=== PATIENT | female | born 1945 | race Caucasian/White ===

== ENCOUNTER 2017-08-13 11:26 | Outpatient (CLI) | payer MEDICARE, BC ==
[2017-08-13] MEDS ORDERED: Iopamidol 370 76% 100 ML VIAL ONE (13:35)
--- NOTE | 2017-08-13 14:16 | CT ---
CONTRAST ENHANCED CTA CHEST: DATE: 08/13/17. COMPARISON: Comparison is made to a previous exam from 04/01/15. FINDINGS: Contrast-enhanced CTA of the chest is performed and 2D and 3D reconstructed images performed. Images demonstrate a granuloma in the posterior aspect of the right lower lobe. Areas of lung parenc hymal scarring is seen in the right lower lobe likely due to progression of an area of lung infarctio n from old pulmonary embolus. This area correlates with the large pulmonary embolus noted on the pat diane's CTA chest from 04/01/15. The right lower lobe pulmonary embolus has for the most part resolved. There appears to be some slig ht asymmetric decreased blood flow in the right lower lobe; however, this may correlate with the area of decreased ventilation in the right lower lobe. I do not see definite evidence of residual right lower lobe pulmonary emboli. Previously visualized left lower lobe and right upper lobe pulmonary em boli have also resolved. There is subtle filling defect remaining in the left upper lobe pulmonary a rtery. This may represent residual fibrotic changes versus a new left upper lobe small pulmonary emb olus. Extensive cholelithiasis remains. IMPRESSION: Significant reduction in the previously noted extensive pulmonary emboli. There may be an area of sc arring in the right lower lobe. There may be some residual embolus or fibrosis or recurrent small ar eas of embolus in the left upper lobe. POS: [facility]
== END 2017-08-13 11:27 | disposition home or self-care (01) ==
LOC: CT 11:26
PROVIDERS: ATTEND Family Medicine
DX: I26.99 Other pulmonary embolism without acute cor pulmonale (principal); R06.02 Shortness of breath; R06.09 Other forms of dyspnea; Z86.711 Personal history of pulmonary embolism
CPT/HCPCS: 71275; 82565

== ENCOUNTER 2017-09-10 15:31 | Outpatient (CLI) | payer MEDICARE, BC | END 2017-09-10 15:32 | disposition home or self-care (01) | LOC: BICMAMMO 15:31 | PROVIDERS: ATTEND Family Medicine | DX: Z12.31 Encounter for screening mammogram for malignant neoplasm of breast (principal); Z80.3 Family history of malignant neoplasm of breast | CPT/HCPCS: 77063; 77067 ==

== ENCOUNTER 2018-02-04 09:45 | Emergency (ER) | payer MEDICARE, BC ==
[2018-02-04 10:33] LABS: #Lymphocytes 0.4 thou/uL (1.20-3.40); #Monocytes 0.3 thou/uL (0.11-0.59); #Neutrophils 4.6 thou/uL (1.40-6.50); %Eosinophils 0.6 % (0.0-10.0); %Lymphocytes 7.3 % (21.0-51.0); %Monocytes 5.4 % (0.0-10.0); %Neutrophils 86.7 % (42.0-75.0); Hemoglobin 15.9 g/dL (12.0-16.0); Mean Corpuscular HGB CONC 32.3 g/dL (32.0-36.0); Mean Corpuscular Hemoglobin 28.7 pg (27.0-31.0); Mean Corpuscular Volume 88.9 fL (78.0-98.0); Mean Platelet Volume 7.3 fL (7.4-10.4); Platelet Count 182 thou/uL (130-400); RBC Distribution Width 11.5 % (11.5-14.5); Red Blood Cell (RBC) Count 5.55 mill/uL (4.20-5.40); White Blood Cell (WBC) Count 5.4 thou/uL (4.8-10.8)
[2018-02-04 10:54] LABS: ALT (SGPT) 25 U/L (8-55); AST (SGOT) 25 U/L (5-34); Albumin 3.8 g/dL (3.4-4.8); Alkaline Phosphatase 82 U/L (40-150); Anion Gap 10 mmol/L (10-20); BUN (Urea Nitrogen) 19 mg/dL (9.8-20.1); Bilirubin, Total 1.2 mg/dL (0.2-1.2); Calc. Creatinine Clearance 0 mL/min (70-130); Calcium 9.5 mg/dL (7.8-10.44); Carbon Dioxide 28 mmol/L (23-31); Chloride 105 mmol/L (98-107); Estimated GFR-MDRD 68; Globulin 2.6 g/dL (2.4-3.5); Glucose 158 mg/dL (83-110); Potassium 3.7 mmol/L (3.5-5.1); Protein, Total 6.4 g/dL (6.0-8.3); Sodium 139 mmol/L (136-145)
== END 2018-02-04 11:46 | disposition home or self-care (01) ==
LOC: ERS 09:45
DX: R11.2 Nausea with vomiting, unspecified (principal); R19.7 Diarrhea, unspecified; R55 Syncope and collapse; E03.9 Hypothyroidism, unspecified; G47.30 Sleep apnea, unspecified; E78.5 Hyperlipidemia, unspecified; I10 Essential (primary) hypertension; Z86.711 Personal history of pulmonary embolism; Z79.899 Other long term (current) drug therapy; Z79.82 Long term (current) use of aspirin
CPT/HCPCS: 36415; 80053; 83880; 85025; 93005

== ENCOUNTER 2018-04-07 08:22 | Emergency (ER) | payer MEDICARE, BC ==
[2018-04-07 09:12] LABS: #Basophils 0.1 thou/uL (0.0-0.2); #Eosinphils 0.1 thou/uL (0.0-0.7); #Lymphocytes 1.5 thou/uL (1.20-3.40); #Monocytes 0.5 thou/uL (0.11-0.59); #Neutrophils 3.7 thou/uL (1.40-6.50); %Basophils 0.9 % (0.0-1.0); %Eosinophils 1.1 % (0.0-10.0); %Lymphocytes 25.9 % (21.0-51.0); %Neutrophils 64.1 % (42.0-75.0); Hemoglobin 16.2 g/dL (12.0-16.0); Mean Corpuscular HGB CONC 32.3 g/dL (32.0-36.0); Mean Corpuscular Hemoglobin 28.7 pg (27.0-31.0); Mean Corpuscular Volume 88.9 fL (78.0-98.0); Mean Platelet Volume 7.5 fL (7.4-10.4); Platelet Count 186 thou/uL (130-400); RBC Distribution Width 11.9 % (11.5-14.5); Red Blood Cell (RBC) Count 5.64 mill/uL (4.20-5.40); White Blood Cell (WBC) Count 5.8 thou/uL (4.8-10.8)
--- NOTE | 2018-04-07 09:25 | RAD ---
PORTABLE CHEST: Indication: Dyspnea, shortness of breath. Comparison: 08-11-17 FINDINGS: Film is suboptimal due to over exposure. No definite infiltrate identified. Elevated right hemidiaphr agm is stable. The heart and mediastinum appear unchanged from prior exam. IMPRESSION: Suboptimal exam due to over exposure. No acute process apparent. POS: [facility]
[2018-04-07 09:31] LABS: ALT (SGPT) 18 U/L (8-55); AST (SGOT) 16 U/L (5-34); Albumin 4.4 g/dL (3.4-4.8); Alkaline Phosphatase 95 U/L (40-150); Anion Gap 16 mmol/L (10-20); BUN (Urea Nitrogen) 13 mg/dL (9.8-20.1); Bilirubin, Total 1.2 mg/dL (0.2-1.2); Calc. Creatinine Clearance 0 mL/min (70-130); Calcium 10.8 mg/dL (7.8-10.44); Carbon Dioxide 24 mmol/L (23-31); Chloride 105 mmol/L (98-107); Estimated GFR-MDRD 67; Globulin 2.8 g/dL (2.4-3.5); Glucose 113 mg/dL (83-110); Potassium 3.6 mmol/L (3.5-5.1); Protein, Total 7.2 g/dL (6.0-8.3); Sodium 141 mmol/L (136-145)
== END 2018-04-07 10:58 | disposition home or self-care (01) ==
LOC: ERS 08:22
DX: R09.02 Hypoxemia (principal); R71.8 Other abnormality of red blood cells; G47.30 Sleep apnea, unspecified; I10 Essential (primary) hypertension; E78.5 Hyperlipidemia, unspecified; E03.9 Hypothyroidism, unspecified; Z79.82 Long term (current) use of aspirin; Z79.899 Other long term (current) drug therapy
CPT/HCPCS: 71045; 80053; 84484; 85025; 93005

== ENCOUNTER 2018-04-08 18:27 | Inpatient (IN) | payer MEDICARE, BC ==
[~2018-04-08 18:27] MED LIST: ISOVUE-370 76%-LOCM 1 ML ONE
[2018-04-08 19:56] LABS: PTT 24.1 SEC (22.9-36.1); Prothrombin Time 13.6 SEC (12.0-14.7)
[2018-04-08 20:33] LABS: CKMB 1.9 ng/mL (0-6.6)
[2018-04-08] MEDS ORDERED: Enoxaparin Sodium 30 MG/0.3 ML SYRINGE ONE (20:33)
[2018-04-08] MEDS ORDERED: Enoxaparin Sodium 100 MG/ML SYRINGE ONE (20:33)
--- NOTE | 2018-04-08 22:03 | CT ---
CT ANGIOGRAM CHEST 04/08/18 COMPARISON: 08/13/17 HISTORY: Chest pain, elevated D-dimer, short of breath. TECHNIQUE: Axial CT imaging at 2.5 mm intervals from thoracic inlet through upper abdomen with IV contrast. Carlos nal and oblique sagittal 3D reformatted imaging obtained. FINDINGS: Partially visualized upper abdomen demonstrates cholelithiasis. No pleural, pericardial, or mediastinal fluid is evident. No axillary, mediastinal, or hilar adenopat hy. A saddle embolism is seen at the bifurcation of the main pulmonary arterial trunk with acute pulmonar y embolism within the right and left main pulmonary arteries. There is clot extending into the lobar and segmental pulmonary arteries supplying the right upper lobe, the right middle lobe, the right low er lobe, the left upper lobe, and the left lower lobe. When compared to the prior examination, the right ventricle is enlarged and the left ventricle is burt ewhat narrowed in the transverse dimension. The interventricular septum is also slightly deviated to the left when compared to the prior examination. This could be explained by the phase of cardiac cycl e, but right heart strain is a possibility as well. There is a granuloma in the right lower lobe on image 69. The lung parenchyma demonstrates no focal a jessica of abnormal opacity. Review of the osseous structures demonstrates degenerative change of bilater al glenohumeral joints. No worrisome lytic or blastic bone lesion is seen. There is multilevel degene rative change noted within the imaged spine. There is incompletely assessed levoscoliosis of the uppe r lumbar spine. IMPRESSION: Extensive pulmonary arterial embolism. Question evidence of right heart strain. Results called to Dr. Singh at 8:25 p.m., 04/08/18. Code CR POS: [facility]
[2018-04-08 23:16] LABS: Troponin I 0.078 ng/mL (< 0.028)
[2018-04-08] MEDS ORDERED: hydrALAZINE 20 MG/ML VIAL SLOW IVP PRN (23:46)
[2018-04-08] MEDS ORDERED: Acetaminophen 325 MG TAB PO PRN (23:46)
[2018-04-08] MEDS ORDERED: Promethazine 25 MG TAB PO PRN (23:46)
[2018-04-08] MEDS ORDERED: Temazepam 15 MG CAP PO PRN (23:46)
[2018-04-08] MEDS ORDERED: Benzonatate 100 MG CAP PO PRN (23:46)
[2018-04-09] MEDS ORDERED: Ondansetron PF 4 MG/2 ML Vial IVP PRN
[2018-04-09] MEDS ORDERED: Sodium Chloride 0.9% 1,000 ML IV SCH
[2018-04-09] MEDS ORDERED: Ondansetron ODT 4 MG TAB SL PRN
[2018-04-09 00:01] VITALS: BMI 47.7
[2018-04-09] MEDS ORDERED: Simvastatin 40 MG TAB PO SCH ×2 (00:30→21:00)
[2018-04-09] MEDS: Sodium Chloride 0.9% 1,000 ML IV SCH ×3 (00:34→15:20)
[2018-04-09 01:45] LABS: #Basophils 0.1 thou/uL (0.0-0.2); #Eosinphils 0.1 thou/uL (0.0-0.7); #Lymphocytes 2.5 thou/uL (1.20-3.40); #Monocytes 0.7 thou/uL (0.11-0.59); #Neutrophils 3.8 thou/uL (1.40-6.50); %Basophils 0.9 % (0.0-1.0); %Eosinophils 1.8 % (0.0-10.0); %Lymphocytes 34.7 % (21.0-51.0); %Monocytes 9.4 % (0.0-10.0); %Neutrophils 53.1 % (42.0-75.0); Hemoglobin 13.8 g/dL (12.0-16.0); Mean Corpuscular HGB CONC 32.9 g/dL (32.0-36.0); Mean Corpuscular Hemoglobin 29.2 pg (27.0-31.0); Mean Corpuscular Volume 88.7 fL (78.0-98.0); Mean Platelet Volume 7.3 fL (7.4-10.4); Platelet Count 163 thou/uL (130-400); RBC Distribution Width 11.8 % (11.5-14.5); Red Blood Cell (RBC) Count 4.72 mill/uL (4.20-5.40); White Blood Cell (WBC) Count 7.2 thou/uL (4.8-10.8)
[2018-04-09 02:21] LABS: Troponin I 0.076 ng/mL (< 0.028)
[2018-04-09 02:22] LABS: Anion Gap 14 mmol/L (10-20); BUN (Urea Nitrogen) 14 mg/dL (9.8-20.1); Calc. Creatinine Clearance 116 mL/min (70-130); Calcium 9.6 mg/dL (7.8-10.44); Carbon Dioxide 24 mmol/L (23-31); Chloride 106 mmol/L (98-107); Estimated GFR-MDRD 59; Glucose 108 mg/dL (83-110); Potassium 3.3 mmol/L (3.5-5.1); Sodium 141 mmol/L (136-145)
[2018-04-09 02:42] LABS: Thyroid Stimulating Hormone 0.617 uIU/mL (0.35-4.94)
--- NOTE | 2018-04-09 03:40 | HP ---
PRIMARY CARE PHYSICIAN: Orquidea Matos MD CHIEF COMPLAINT: Feeling short of breath. HISTORY OF PRESENT ILLNESS: Ms. Zheng is a pleasant 72-year-old female who has a history of hypertension and hyperlipidemia. She was in her usual state of health until about 2 to 3 months ago that she noticed that she was short of breath primarily when she would get up and walk around but only for just short distances. She says that in the last 2 to 3 days, she has been extremely short of breath and she had gone to the emergency room yesterday and they saw her and treated her and told her to follow up with her primary care physician. She did the following day and Dr. Matos did some lab work and found that her D-dimer was elevated and referred her back to the ER today for further evaluation. She had a CT angiogram of the chest, which was positive for a saddle embolus and she is being admitted for the treatment of this. The patient has a history of pulmonary embolism in the past. This was following a knee replacement surgery. She says she is not sure whether or not she had lab work for hypercoagulable state. She was treated with Eliquis for 6 months to year and then taken off it. The patient denies any provoking incident on this occasion that she is aware of. She does remember going on a trip in [place] for about [address], but other than that, no other provoking symptoms. She denies any chest pain. No nausea. No vomiting. No fevers. No chills, and she has usual lower extremity edema. REVIEW OF SYSTEMS: All systems were reviewed and are negative except for that mentioned in the history of present illness. PAST MEDICAL HISTORY: Significant for hypertension, previous pulmonary embolism, hyperlipidemia, obstructive sleep apnea, hypothyroidism. PAST SURGICAL HISTORY: She has had cataract surgery, colonoscopy, knee replacement, hysterectomy, hemorrhoidectomy, tonsillectomy. ALLERGIES: 1. PENICILLIN. 2. CODEINE. FAMILY HISTORY: Significant for hypertension and diabetes mellitus. Her father who had lung cancer. SOCIAL HISTORY: She is a nonsmoker and nondrinker. She is . Code status is full code, and with regard to the code status, she says that she would want an attempt of resuscitation; however, she would not want to linger on the ventilator for a long period of time. Therefore, code status is a full code. Her son is her surrogate decision maker. CURRENT MEDICATIONS: Include; 1. Simvastatin 20 mg at bedtime. 2. Metoprolol 50 mg extended release at bedtime. 3. Losartan 50/12.5 daily. 4. Potassium chloride 10 mEq. 5. Aspirin 81 mg daily. PHYSICAL EXAMINATION: GENERAL: She is alert and oriented. She appears to be in no acute distress. VITAL SIGNS: She is in no acute distress. She is well developed and well nourished. VITAL SIGNS: Blood pressure 118/84, heart rate 112, respiratory rate of 22, temperature is 98.6. HEENT: Pupils are equal, round, and reactive. Extraocular muscles are intact. Her sclerae are anicteric. Throat; there is no erythema, no exudates. NECK: No adenopathy. No bruits. LUNGS: Clear to auscultation. There is no wheezing, no rales, no rhonchi. CARDIOVASCULAR: She had a normal S1 and S2. There is no S3 or S4. No murmurs, clicks, or rubs. ABDOMEN: Obese. It is soft. It is nontender and nondistended. Positive for bowel sounds. There is no rebound or guarding. EXTREMITIES: She has some varicose veins, some nonpitting edema, but there is no erythema, no warmth. NEUROLOGIC: Her cranial nerves II through XII are grossly intact. Muscle strength is intact in her upper and lower extremities. SKIN AND INTEGUMENT: There are no significant skin lesions. No rash. LAB RESULTS: White blood cell count 5.8, hemoglobin 16.2, hematocrit is 50.2, platelet count is 186. Sodium is 141, potassium 3.6, chloride is 104, CO2 is 24, BUN of 13, creatinine 0.84, glucose is 113. A chest x-ray that by my reading is poorly penetrated. No evidence of any acute infiltrates. She had an EKG, that is sinus tachycardia, the heart rate is 108. There is low voltage and some nonspecific ST wave abnormalities. This is also by my reading. ASSESSMENT: 1. Ms. Zheng is a pleasant 72-year-old female, who presents to the emergency room with shortness of breath. She has a history of pulmonary embolism in the past and is being admitted for a recurrent pulmonary embolism, which was described as a saddle embolus on the CT angiogram. She is not hypotensive and she does not appear to be in any extremis, therefore I doubt that she would require thrombolytic therapy. She will be admitted to the [facility] versus telemetry. Started on Lovenox. She has had Eliquis in the past and feels comfortable being treated with this going forward. We will get an echocardiogram to assess her RV function and assess for RV strain. We will also get bilateral lower extremity venous Dopplers as well. Pulmonary Critical Care Medicine has already been consulted. 2. For hypertension, we will continue losartan, hydrochlorothiazide, and p.r.n. medications as needed. 3. History of obstructive sleep apnea. She can use BiPAP at night with her usual setting. 4. Hypothyroidism. This is listed in her record, however, does not appear that she is on any medications for this. We will go ahead and just check a TSH and free T4. Job ID: [id number]
--- NOTE | 2018-04-09 04:06 | CON ---
DATE OF CONSULTATION: 04/07/2018 REASON FOR CONSULTATION: Pulmonary embolism. HISTORY OF PRESENT ILLNESS: Ms. Zheng is a pleasant 72-year-old female, who presented to the hospital today with a 2-3-week history of increasing shortness of breath and no other symptoms. She has a history of a pulmonary embolism that occurred after a left knee replacement and subsequent DVT a few years ago. She was on Eliquis for 1 year, but has now been off that medication for over a year. She has no history of current or past bleeding diathesis. She is currently not taking any blood thinner medication. PAST MEDICAL HISTORY: 1. Pulmonary embolism. 2. Deep venous thromboses. 3. Hyperlipidemia. 4. Hypertension. 5. Hypothyroidism. PAST SURGICAL HISTORY: Hysterectomy, hemorrhoidectomy, cataract surgery, tonsillectomy and adenoidectomy, and knee replacement. SOCIAL HISTORY: Nonsmoker, does not consume alcohol. She is a retired elementary school art teacher. FAMILY MEDICAL HISTORY: Unremarkable. ALLERGIES: PENICILLIN, CODEINE, OPIOIDS, AND TRAMADOL. REVIEW OF SYSTEMS: A 12-point review of systems is otherwise negative. PHYSICAL EXAMINATION: VITAL SIGNS: Temperature is 98, pulse 94, respirations 22, blood pressure 151/105, and O2 saturation 100% on 3 L nasal cannula. GENERAL: She is a pleasant female who is awake and alert, and in no distress. HEENT: Pupils reactive. Sclerae anicteric. Oropharynx clear. NECK: Without adenopathy, JVD, or bruits. LUNGS: Clear without wheezing or rhonchi. CARDIAC: S1 and S2, regular without murmur. ABDOMEN: Obese, soft, nontender, and nondistended. EXTREMITIES: No clubbing, cyanosis, or edema. NEUROLOGIC: Fully intact throughout. SKIN: Shows no lesions. LABORATORY DATA: Her INR is 1.0, PTT 24.1, troponin 0.09. White blood cell count 5.8, hematocrit 50, and platelet count 186. D-dimer 4.3. Sodium 141, potassium 3.6, BUN 13, creatinine 0.8. I reviewed her CT angiogram personally. She has small emboli straddling the bifurcation of the pulmonary artery. She has embolus extending to both left and right main pulmonary artery branches. ASSESSMENT: 1. Recurrent pulmonary embolism. 2. Probable deep venous thromboses. 3. Hypertension. 4. Hypothyroidism. 5. History of hyperlipidemia. PLAN: This patient will need to be on lifelong anticoagulation. She received a dose of Lovenox in the ER this evening. She can be safely transitioned to Eliquis 10 mg b.i.d. starting tomorrow morning. We will get an ultrasound of her lower extremities to confirm DVT. If present, she will probably need to be monitored in the hospital for about 48 hours and then safe to discharge thereafter. I will be happy to follow with you. TIME SPENT: The above accomplished 70 minutes of time, of that time greater than 50% was spent with the patient and on the patient's unit in the hospital. Job ID: [id number]
[2018-04-09 05:26] LABS: Free T4 (Free Thyroxine) 1.09 ng/dL (0.70-1.48)
[2018-04-09] MEDS ORDERED: Apixaban 5 MG TAB PO SCH ×2 (07:00)
--- NOTE | 2018-04-09 09:33 | ULT ---
BILATERAL LOWER EXTREMITY VENOUS DOPPLER ULTRASOUND: HISTORY: Pulmonary embolism, elevated D-dimer, shortness of breath, and chest pain. Bilateral lower extremity pain and edema. TECHNIQUE: Iqbal scale ultrasound with color flow and spectral Doppler imaging of the deep venous systems of the lower extremities is performed bilaterally. FINDINGS: There is good flow, compression, and augmentation noted in the common femoral, femoral, deep femoral, popliteal, posterior tibial, and greater saphenous veins on either side. IMPRESSION: No evidence of deep vein thrombosis in either lower extremity. POS: [facility]
--- NOTE | 2018-04-09 10:46 | PRG ---
DATE OF SERVICE: 04/09/2018 SUBJECTIVE: She is less short of breath. Has no acute complaints. OBJECTIVE: VITAL SIGNS: Temperature 97.8, pulse 81, respirations 18, O2 saturation is 94% on 2 L, and blood pressure 111/77. HEENT: Unremarkable. NECK: No adenopathy. No JVD. LUNGS: Clear anteriorly. CARDIAC: S1, S2. Regular. ABDOMEN: Soft. EXTREMITIES: No edema. The venogram demonstrated no DVT. ASSESSMENT: Pulmonary embolism. PLAN: Continue Eliquis 10 mg twice daily for the next total of 7 days, then 5 mg twice daily indefinitely thereafter. If she is doing well today, she can probably go home tomorrow. Job ID: [id number]
--- NOTE | 2018-04-09 10:51 | PDOC.PN ---
- Subjective Encounter Start Date: 04/09/18 Encounter Start Time: 10:50 Subjective: no chest pain, sob - Objective Resuscitation Status - Order Detail: 04/08/18 22:30 Resuscitation Status Routine Resuscitation Status: FULL: Full Resuscitation MAR Reviewed: Yes Vital Signs & Weight: Vital Signs (12 hours) Temp Pulse Resp BP Pulse Ox 04/09/18 07:57 94 L 04/09/18 07:30 97.8 F 81 18 111/77 94 L 04/09/18 03:56 97.2 F L 75 16 110/62 94 L 04/08/18 23:35 97.8 F 98 22 H 142/85 H 98 Weight Weight 295 lb 6.4 oz I&O: 04/08/18 04/09/18 04/10/18 06:59 06:59 06:59 Intake Total 599 Output Total 300 Balance 299 Result Diagrams: 04/09/18 01:37 04/09/18 01:37 Phys Exam - Physical Examination Neck: no JVD Respiratory: clear to auscultation bilateral Cardiovascular: RRR, no significant murmur Gastrointestinal: soft, positive bowel sounds Musculoskeletal: no edema Dx/Plan (1) Pulmonary embolism Code(s): I26.99 - OTHER PULMONARY EMBOLISM WITHOUT ACUTE COR PULMONALE Status : Acute Qualifiers: Pulmonary embolism type: saddle Chronicity: acute Acute cor pulmonale presence: without acute cor pulmonale Qualified Code(s): I26.92 - Saddle embolus of pulmonary artery without acute cor pulmonale (2) Hypothyroidism Code(s): E03.9 - HYPOTHYROIDISM, UNSPECIFIED Status: Acute Qualifiers: Hypothyroidism type: unspecified Qualified Code(s): E03.9 - Hypothyroidism , unspecified (3) Dyslipidemia Code(s): E78.5 - HYPERLIPIDEMIA, UNSPECIFIED Status: Chronic (4) Hypertension Code(s): I10 - ESSENTIAL (PRIMARY) HYPERTENSION Status: Chronic Qualifiers: Hypertension type: essential hypertension Qualified Code(s): I10 - Essential (primary) hypertension (5) GREGORY (obstructive sleep apnea) Code(s): G47.33 - OBSTRUCTIVE SLEEP APNEA (ADULT) (PEDIATRIC) Status: Chronic - Plan eliquis 10 mg bid -: OL2 prn -: selected home meds * .
[2018-04-09] MEDS: Apixaban 5 MG TAB PO SCH (20:47)
[2018-04-10] MEDS: Sodium Chloride 0.9% 1,000 ML IV SCH (03:16)
[2018-04-10 07:34] VITALS: BP 128/75; TEMP 97.3
[2018-04-10] MEDS: Apixaban 5 MG TAB PO SCH (08:56)
--- NOTE | 2018-04-10 10:03 | DIS ---
DATE OF ADMISSION: 04/08/2018 DATE OF DISCHARGE: 04/10/2018 PRIMARY CARE PHYSICIAN: Orquidea Matos MD DISPOSITION: Discharged home. FINAL DIAGNOSES: 1. Saddle embolus of pulmonary artery without acute cor pulmonale. 2. Hypertension. 3. Hypothyroidism. 4. Dyslipidemia. 5. Demand ischemia. DISCHARGE MEDICATIONS: 1. Eliquis 10 mg p.o. b.i.d. x5 days, then 5 mg p.o. b.i.d. indefinitely. 2. Potassium chloride 10 mEq a day. 3. Thyroid 90 mg a day. 4. Metoprolol 50 mg at bedtime. 5. Losartan/hydrochlorothiazide 50/12.5, 1 tablet daily. 6. Zocor 20 mg at bedtime. ALLERGIES: CODEINE AND PENICILLIN. DIET: Heart healthy. PENDING AT THE TIME OF DISCHARGE: Nothing. ACTIVITY STATUS: The patient has been cautioned on avoiding dangerous activities such as climbing ladders, getting into any state where she is likely to fall or injure herself. HOSPITAL COURSE: The patient admitted to the hospital through [facility] from the emergency room with an acute pulmonary embolus. She had a previous pulmonary embolism. She was started on Eliquis [address] Wu consulted. CT done in the emergency room revealed saddle embolism at the bifurcation of the main pulmonary artery trunk with acute pulmonary embolism in both right and left pulmonary arteries. PERTINENT LABORATORY: Her basic metabolic profile was normal. Her troponin's were elevated to 0.09, 0.078, 0.076 suggestive of demand ischemia. CBC was unremarkable. The patient has done well during her hospital stay. Ambulating without difficulty. She is being discharged to follow up with her primary care provider Dr. Orquidea Matos in one week. There is an echocardiogram pending, it was done routinely for followup on the echocardiogram done while she was to follow up on her reports of dilated right ventricle on the CT scan, etc. A venogram was done, which showed no clot in either leg. At the time of discharge, vital signs are stable. Cardio-respiratory exam is normal and she is doing well. Job ID: [id number]
--- NOTE | 2018-04-10 10:06 | PQF ---
EDGAR HOLLEY, [facility] [id number] [facility] [id number] CLINICAL DOCUMENTATION IMPROVEMENT CLARIFICATION FORM: ICD-10 Updated PLEASE DO AN ADDENDUM TO THE PROGRESS NOTE WITH ANY DOCUMENTATION UPDATES OR ADDITIONS AND CARRY THROUGH TO DC SUMMARY. THANK YOU. DATE: 04/10/2018 ATTN: DR. POPE Please exercise your independent, professional judgment in responding to the clarification form. Clinical indicators are provided on the bottom of this form for your review Please check appropriate box(s): BMI > 40 with associated diagnosis of: (check one) [x ] Morbid (Severe) Obesity [x ] Due to excess calories [ ] with Alveolar Hypoventilation (Pickwickian syndrome) [ ] Overweight [ ] Obesity [ ] Other diagnosis [ ] Unable to determine For continuity of documentation, please document condition throughout progress notes and discharge summary. Thank You. BMI < 19 Under weight 19 - 24.9 Healthy 25.0 - 29.9 Slightly Overweight 30.0 - 34.9 Obese 35.0 - 39.9 Severely Obese 40.0 and Over Morbidly Obese CLINICAL INDICATORS - SIGNS / SYMPTOMS / LABS Height-5'6" AND Weight-295 LBS = BMI 47.7 RISK FACTORS Hypothyroid Obstructive sleep apnea Hyperlipidemia TREATMENTS: Dietary consult / weight loss counseling Calorie counts Thank you, Katya (This form is maintained as a part of the permanent medical record) 2014 [employer], [employer]. All Rights Reserved Katya Escobar RN, CDIS [email or web address] [phone] MTDD
--- NOTE | 2018-04-10 11:08 | PRG ---
DATE OF SERVICE: 04/10/2018 SUBJECTIVE: She is up in chair, feels well, wants to go home. OBJECTIVE: VITAL SIGNS: Temperature 97.3, pulse 76, respirations 18, O2 saturation 94% on room air, and blood pressure 120/75. HEENT: Unremarkable. NECK: No JVD. CHEST: Clear. CARDIAC: S1 and S2. Regular. ABDOMEN: Soft. EXTREMITIES: No edema. LABORATORY DATA: Her echocardiogram report is still pending. ASSESSMENT: Pulmonary embolism - recurrent. PLAN: Lifelong Eliquis. Discharge orders have been written by the hospitalist. The patient will follow up in the office in a few weeks. Job ID: [id number]
--- NOTE | 2018-04-12 00:05 | EKG ---
Test Reason : Blood Pressure : / mmHG Vent. Rate : 104 BPM Atrial Rate : 104 BPM P-R Int : 210 ms QRS Dur : 068 ms QT Int : 346 ms P-R-T Axes : 057 -17 041 degrees QTc Int : 454 ms Sinus tachycardia with 1st degree A-V block Low voltage QRS Inferior infarct , age undetermined Cannot rule out Anterior infarct , age undetermined Abnormal ECG Confirmed by NIKITA EPSTEIN MD ([id number]), inside sales person KIM VENTURA ([id number]) on 04/12/2018 12:04:24 AM Referred By: Confirmed By:NIKITA EPSTEIN MD
== END 2018-04-10 11:34 | disposition home or self-care (01) | DRG 176 ==
LOC: ERS 18:27 → 2NO 20:53
PROVIDERS: ADMIT Internal Medicine; ATTEND Internal Medicine
DX: I26.92 Saddle embolus of pulmonary artery without acute cor pulmonale (principal); I24.8 Other forms of acute ischemic heart disease; Z68.42 Body mass index [BMI] 45.0-49.9, adult; I10 Essential (primary) hypertension; E78.5 Hyperlipidemia, unspecified; G47.33 Obstructive sleep apnea (adult) (pediatric); E03.9 Hypothyroidism, unspecified; Z96.659 Presence of unspecified artificial knee joint; E66.01 Morbid (severe) obesity due to excess calories; Z98.49 Cataract extraction status, unspecified eye; Z86.711 Personal history of pulmonary embolism; Z90.710 Acquired absence of both cervix and uterus; Z90.89 Acquired absence of other organs; Z98.890 Other specified postprocedural states; Z88.0 Allergy status to penicillin; Z88.5 Allergy status to narcotic agent; Z79.82 Long term (current) use of aspirin; Z86.718 Personal history of other venous thrombosis and embolism
CPT/HCPCS: 36415; 71045; 71275; 80048; 80053; 82550; 82553; 83880; 84439; 84443; 84484; 85025; 85379; 85610; 85730; 93005; 93306; 93970; 96372; J1650

== ENCOUNTER 2018-09-11 09:55 | Outpatient (CLI) | payer MEDICARE, BC ==
--- NOTE | 2018-09-11 11:18 | MMO ---
Bilateral MAMMO Bilat Screen [facility]. CLINICAL HISTORY: Patient is 73 years old and is seen for screening. The patient has the following family history of breast cancer: sister. The patient has no personal history of cancer. VIEWS: The views performed were: bilateral craniocaudal with tomosynthesis and bilateral mediolateral oblique with tomosynthesis. FILMS COMPARED: The present examination has been compared to a prior imaging study performed at [facility] on 09/10/2017. MAMMOGRAM FINDINGS: The breasts are almost entirely fat. There are no suspicious masses, suspicious calcifications, or new areas of architectural distortion. IMPRESSION: THERE IS NO MAMMOGRAPHIC EVIDENCE OF MALIGNANCY. A ROUTINE FOLLOW-UP MAMMOGRAM IN 1 YEAR IS RECOMMENDED. THE RESULTS OF THIS EXAM WERE SENT TO THE PATIENT. ACR BI-RADS Category 1 - Negative MAMMOGRAPHY NOTE: 1. A negative mammogram report should not delay a biopsy if a dominant of clinically suspicious mass is present. 2. Approximately 10% to 15% of breast cancers are not detected by mammography. 3. Adenosis and dense breasts may obscure an underlying neoplasm.
== END 2018-09-11 09:56 | disposition home or self-care (01) ==
LOC: BICMAMMO 09:55
PROVIDERS: ATTEND Family Medicine
DX: Z12.31 Encounter for screening mammogram for malignant neoplasm of breast (principal); Z80.3 Family history of malignant neoplasm of breast
CPT/HCPCS: 77063; 77067

== ENCOUNTER 2018-09-26 08:42 | Emergency (ER) | payer MEDICARE, BC ==
[2018-09-26 09:13] LABS: #Basophils 0.1 thou/uL (0.0-0.2); #Lymphocytes 1.2 thou/uL (1.20-3.40); #Monocytes 0.5 thou/uL (0.11-0.59); #Neutrophils 5.1 thou/uL (1.40-6.50); %Basophils 0.9 % (0.0-1.0); %Eosinophils 0.6 % (0.0-10.0); %Lymphocytes 17.6 % (21.0-51.0); %Monocytes 7.6 % (0.0-10.0); %Neutrophils 73.3 % (42.0-75.0); Hemoglobin 14.6 g/dL (12.0-16.0); Mean Corpuscular HGB CONC 32.6 g/dL (32.0-36.0); Mean Corpuscular Hemoglobin 28.9 pg (27.0-31.0); Mean Corpuscular Volume 88.7 fL (78.0-98.0); Mean Platelet Volume 7.5 fL (7.4-10.4); Platelet Count 184 thou/uL (130-400); RBC Distribution Width 11.7 % (11.5-14.5); Red Blood Cell (RBC) Count 5.04 mill/uL (4.20-5.40); White Blood Cell (WBC) Count 6.9 thou/uL (4.8-10.8)
[2018-09-26 09:20] LABS: INR-International Normal Ratio 1.2; PTT 32.8 SEC (22.9-36.1); Prothrombin Time 15.4 SEC (12.0-14.7)
[2018-09-26 09:22] LABS: D-Dimer Test 0.43 *mcg/mL (0.27-0.43)
[2018-09-26 09:36] LABS: ALT (SGPT) 14 U/L (8-55); AST (SGOT) 15 U/L (5-34); Albumin 3.9 g/dL (3.4-4.8); Alkaline Phosphatase 69 U/L (40-150); Anion Gap 12 mmol/L (10-20); BUN (Urea Nitrogen) 16 mg/dL (9.8-20.1); Bilirubin, Total 0.7 mg/dL (0.2-1.2); CK (CPK) 31 U/L (29-168); Calc. Creatinine Clearance 0 mL/min (70-130); Calcium 10.3 mg/dL (7.8-10.44); Carbon Dioxide 27 mmol/L (23-31); Chloride 104 mmol/L (98-107); Estimated GFR-MDRD 76; Globulin 2.4 g/dL (2.4-3.5); Glucose 121 mg/dL (83-110); Potassium 3.3 mmol/L (3.5-5.1); Protein, Total 6.3 g/dL (6.0-8.3); Sodium 140 mmol/L (136-145)
[2018-09-26 09:50] LABS: Bacteria/HPF 2+ HPF (None Seen); Bilirubin Negative (Negative); Blood, Urine 2+ (Negative); Clarity Turbid (Clear); Glucose, Urine (Dipstick) Normal (Negative); Leukocyte 250 Leu/uL (Negative); Nitrite Negative (Negative); Protein, Urine (Dipstick) 20 mg/dL (Neg-Trace); Squamous Epithelial 0-3 HPF (0-3); Urobilinogen Normal mg/dL (Less than 2)
[2018-09-26 10:04] LABS: Yeast-Budding Rare HPF (None Seen)
--- NOTE | 2018-09-26 11:01 | CT ---
CTA CHEST WITH CONTRAST: Date: 09/26/18 Axial tomograms obtained through the chest with angio protocol. Multiplanar reconstruction and 3D pos tprocessing. INDICATION: Dyspnea. History of prior pulmonary emboli. Comparison made to CTA chest dated 04/08/18. FINDINGS: The pulmonary arteries are well opacified. No evidence of pulmonary embolus identified. Thoracic aort a unremarkable. The lungs show mild atelectasis in the right lung base. There is hazy ground-glass opacity bilaterall y which could represent mild edema. Mediastinum is unremarkable. There is soft tissue density which is seen in the upper chest on the very first image to the right of the trachea inferior to the right clavicular head at the sternoclavicular junction. This extends inf erior into the anterior mediastinum. It measures 3.5 cm in AP dimension on the very first image. This was present on CT chest exam of 08/13/17 and may represent mass extending from the inferior right lo be of the thyroid. Images through the upper abdomen show evidence of cholelithiasis. This has also been seen on prior st udies. IMPRESSION: 1. No evidence of pulmonary embolus. 2. Hazy ground-glass lung opacity may represent mild edema. No confluent consolidation or infiltrate . 3. Soft tissue mass seen along the trachea on the right extending into the substernal region may rep resent mass extending from the inferior right lobe of the thyroid. This is incompletely imaged on thi s exam. This was present on a prior study from 2018. Consider elective thyroid workup. 4. Images through the upper abdomen show evidence of cholelithiasis. This has also been seen on prio r studies. POS: [facility]
[2018-09-26] MEDS ORDERED: ISOVUE-370 76%-LOCM 1 ML ONE (11:52)
== END 2018-09-26 12:00 | disposition home or self-care (01) ==
LOC: ERS 08:42
DX: N39.0 Urinary tract infection, site not specified (principal); R53.1 Weakness; E03.9 Hypothyroidism, unspecified; G47.30 Sleep apnea, unspecified; E78.5 Hyperlipidemia, unspecified; I10 Essential (primary) hypertension; Z79.899 Other long term (current) drug therapy; Z79.01 Long term (current) use of anticoagulants
CPT/HCPCS: 71275; 80053; 81003; 81015; 82550; 83880; 84484; 85025; 85379; 85610; 85730; 87077; 87086; 87186; 93005; Q9966

== ENCOUNTER 2018-10-07 10:31 | Outpatient (CLI) | payer MEDICARE, BC ==
--- NOTE | 2018-10-07 11:41 | ULT ---
Thyroid ultrasound: 10/07/2018 HISTORY: Thyroid mass TECHNIQUE: Multiplanar grayscale sonographic imaging of the thyroid gland obtained. FINDINGS: The thyroid isthmus measures 4-5 mm in AP dimension. Right lobe measures 5.7 x 3.5 x 3.0 cm and left lobe measures 3.2 x 1.9 x 1.9 cm. There is no thyroid nodule appreciated within the thyroid isthmus or within the left lobe of the thyr oid gland. There is a small ill-defined hypoechoic nodule in the inferior aspect of the right lobe measuring donavan roximately 1.3 x 1.0 cm. There are 2 dominant thyroid nodules within the right lobe of the thyroid gland. This includes a nodu le measuring 2.8 x 2.3 x 2.5 cm in the midportion of the right and an additional nodule in the upper aspect of the right lobe measuring 3.0 x 2.3 x 2.1 cm. Both of the dominant hypoechoic nodules within the right lobe are heterogeneously hypoechoic and demonstrate no internal calcification. IMPRESSION: 2 dominant solid heterogeneously hypoechoic nodules are noted within the right lobe of th e thyroid gland. Based on TI-RADS classification,, both of these nodules are category 4 lesions. Given their size, fin-needle aspiration of both nodules advised. CODE T
== END 2018-10-07 10:32 | disposition home or self-care (01) ==
LOC: BICULT 10:31
PROVIDERS: ATTEND Family Medicine
DX: E07.89 Other specified disorders of thyroid (principal); E04.2 Nontoxic multinodular goiter
CPT/HCPCS: 76536

== ENCOUNTER 2019-09-14 08:59 | Outpatient (CLI) | payer MEDICARE, BC ==
--- NOTE | 2019-09-14 09:51 | MMO ---
Bilateral MAMMO Bilat Screen [facility]. CLINICAL HISTORY: Patient is 74 years old and is seen for screening. The patient has the following family history of breast cancer: sister. The patient has no personal history of cancer. VIEWS: The views performed were: bilateral craniocaudal; bilateral craniocaudal with tomosynthesis; bilateral mediolateral oblique; and bilateral mediolateral oblique with tomosynthesis. FILMS COMPARED: The present examination has been compared to prior imaging studies performed at [facility] on 03/07/2016, 08/29/2016, 09/10/2017 and 09/11/2018. This study has been interpreted with the assistance of computer-aided detection. MAMMOGRAM FINDINGS: The breasts are almost entirely fat. There are calcifications seen in both breasts. There are no suspicious masses, suspicious calcifications, or new areas of architectural distortion. IMPRESSION: THERE IS NO MAMMOGRAPHIC EVIDENCE OF MALIGNANCY. A ROUTINE FOLLOW-UP MAMMOGRAM IN 1 YEAR IS RECOMMENDED. THE RESULTS OF THIS EXAM WERE SENT TO THE PATIENT. ACR BI-RADS Category 2 - Benign finding MAMMOGRAPHY NOTE: 1. A negative mammogram report should not delay a biopsy if a dominant of clinically suspicious mass is present. 2. Approximately 10% to 15% of breast cancers are not detected by mammography. 3. Adenosis and dense breasts may obscure an underlying neoplasm. Reported by: BRITTANIE PEREZ MD Electonically Signed: [id number]
== END 2019-09-14 09:00 | disposition home or self-care (01) ==
LOC: BICMAMMO 08:59
PROVIDERS: ATTEND Family Medicine
DX: Z12.31 Encounter for screening mammogram for malignant neoplasm of breast (principal); Z80.3 Family history of malignant neoplasm of breast
CPT/HCPCS: 77063; 77067

== ENCOUNTER 2019-09-14 09:45 | Outpatient (CLI) | payer MEDICARE, BC ==
--- NOTE | 2019-09-14 10:28 | ULT ---
THYROID ULTRASOUND: COMPARISON: 10/07/2018. HISTORY: Thyroid nodule. FINDINGS: Thyroid isthmus measures 0.4 cm. Right thyroid lobe 5.1 x 2.8 x 3.0 cm. Left thyroid lobe 3.9 x 1.2 x 2.2 cm. Thyroid nodules: Right thyroid lobe: 2.6 x 2.4 x 2.2 cm solid nodule in the upper pole. 2.3 x 1.3 x 2.0 cm hypoechoic complex nodule in the midpole. 2.0 x 1.6 x 1.5 cm solid nodule in the lower pole. 1.4 x 0.9 x 1.3 cm solid hypoechoic nodule in the lower pole. IMPRESSION: Multiple solid nodules involving the right thyroid lobe. TIRADS level 4 moderate suspicious. Fine-nee dle aspiration of the solid nodule in the upper pole, hypoechoic complex lesion in the midpole and solid nodule in the mid to lower pole is recommended if it has not already been performed. Transcribed Date/Time: 09/14/2019 11:08 AM
== END 2019-09-14 09:46 | disposition home or self-care (01) ==
LOC: BICULT 09:45
PROVIDERS: ATTEND Otolaryngology Plastic Surgery within the Head & Neck
DX: E04.2 Nontoxic multinodular goiter (principal)
CPT/HCPCS: 76536

== ENCOUNTER 2020-05-30 23:52 | Emergency (ER) | payer MEDICARE, BC ==
[2020-05-31 00:37] LABS: #Basophils 0.1 thou/uL (0.0-0.2); #Eosinphils 0.1 thou/uL (0.0-0.7); #Monocytes 0.7 thou/uL (0.11-0.59); #Neutrophils 6.1 thou/uL (1.40-6.50); %Basophils 0.8 % (0.0-1.0); %Eosinophils 1.1 % (0.0-10.0); %Monocytes 8.2 % (0.0-10.0); Hemoglobin 13.8 g/dL (12.0-16.0); Mean Corpuscular HGB CONC 33.2 g/dL (32.0-36.0); Mean Corpuscular Hemoglobin 29.3 pg (27.0-31.0); Mean Corpuscular Volume 88.1 fL (78.0-98.0); Mean Platelet Volume 7.3 fL (7.4-10.4); Platelet Count 198 thou/uL (130-400); RBC Distribution Width 12.4 % (11.5-14.5); Red Blood Cell (RBC) Count 4.72 mill/uL (4.20-5.40)
[2020-05-31 00:58] LABS: ALT (SGPT) 15 U/L (8-55); AST (SGOT) 15 U/L (5-34); Albumin 3.9 g/dL (3.4-4.8); Alkaline Phosphatase 76 U/L (40-110); Anion Gap 16 mmol/L (10-20); BUN (Urea Nitrogen) 13 mg/dL (9.8-20.1); Bilirubin, Total 0.7 mg/dL (0.2-1.2); Calc. Creatinine Clearance 0 mL/min (70-130); Calcium 9.4 mg/dL (7.8-10.44); Carbon Dioxide 24 mmol/L (23-31); Chloride 102 mmol/L (98-107); Globulin 2.1 g/dL (2.4-3.5); Glucose 119 mg/dL (83-110); Lipase 16 U/L (8-78); Sodium 139 mmol/L (136-145)
== END 2020-05-31 04:20 | disposition home or self-care (01) ==
LOC: ERS 23:52
DX: R00.2 Palpitations (principal); R42 Dizziness and giddiness; E03.9 Hypothyroidism, unspecified; G47.30 Sleep apnea, unspecified; E78.5 Hyperlipidemia, unspecified; I10 Essential (primary) hypertension
CPT/HCPCS: 36415; 71045; 80053; 83690; 84484; 85025; 93005; 94760

== ENCOUNTER 2020-06-02 08:24 | Outpatient (CLI) | payer MEDICARE, BC ==
[2020-06-02] MEDS ORDERED: Iopamidol-370 76% 500 ML 1 ML ONE (12:06)
== END 2020-06-02 08:25 | disposition home or self-care (01) ==
LOC: BICCT 08:24
PROVIDERS: ATTEND Urology
DX: R31.0 Gross hematuria (principal); N20.1 Calculus of ureter; D17.71 Benign lipomatous neoplasm of kidney; M47.816 Spondylosis without myelopathy or radiculopathy, lumbar region
CPT/HCPCS: 74178; Q9967

== ENCOUNTER 2020-07-20 15:44 | Outpatient (CLI) | payer MEDICARE, BC | END 2020-07-20 15:45 | disposition home or self-care (01) | LOC: BICCT 15:44 | PROVIDERS: ATTEND Urology | DX: R31.0 Gross hematuria (principal); N20.2 Calculus of kidney with calculus of ureter; K80.20 Calculus of gallbladder without cholecystitis without obstruction | CPT/HCPCS: 74176 ==

== ENCOUNTER 2020-07-24 10:36 | Outpatient (CLI) | payer MEDICARE, BC ==
[2020-07-24 12:15] LABS: Hemoglobin 14.2 g/dL (12.0-15.5); Mean Corpuscular Hemoglobin 28.3 pg (27.0-33.0); Mean Corpuscular Volume 88.4 fl (81.6-98.3); Platelet Count 232 10x3/uL (150-450); RBC Distribution Width 13.1 % (11.5-14.5); Red Blood Cell (RBC) Count 5.02 10x6/uL (3.90-5.03); White Blood Cell (WBC) Count 6.8 10x3/uL (3.5-10.5)
[2020-07-24 12:20] LABS: INR-International Normal Ratio 1.1; PTT 27.9 sec (22.0-33.0); Prothrombin Time 11.6 sec (9.5-12.1)
[2020-07-24 12:41] LABS: Anion Gap 15 mmol/L (10-20); BUN (Urea Nitrogen) 18 mg/dL (9.8-20.1); Calc. Creatinine Clearance 0 mL/min (70-130); Calcium 10.8 mg/dL (7.8-10.44); Carbon Dioxide 23 mmol/L (23-31); Chloride 106 mmol/L (98-107); Glucose 142 mg/dL (83-110); Potassium 4.3 mmol/L (3.5-5.1); Sodium 140 mmol/L (136-145)
[2020-07-24 12:44] LABS: Bilirubin Neg (Negative); Blood, Urine 250 (Negative); Clarity Slightly Cloudy (Clear); Glucose, Urine (Dipstick) Normal (Negative); Ketone, Urine Negative (Negative); Leukocyte 25 (Negative); Nitrite Negative (Negative); Protein, Urine (Dipstick) 15 mg/dl (Neg-Trace); Urobilinogen Normal mg/dL (Less than 2)
[2020-07-24 13:03] LABS: Bacteria/HPF 1+ HPF (None Seen); RBC/HPF 21-50 HPF (0-3); Squamous Epithelial 0-3 HPF (0-3); WBC/HPF 0-3 HPF (0-3)
[2020-07-24 13:04] LABS: Renal Epithelial 0-3 HPF (None Seen)
[2020-07-24 18:29] LABS: SARS-CoV-2 PCR by NAA Not Detected (NotDetected)
== END 2020-07-24 10:37 | disposition home or self-care (01) ==
LOC: LABBT 10:36
PROVIDERS: ATTEND Urology
DX: Z01.818 Encounter for other preprocedural examination (principal); D17.71 Benign lipomatous neoplasm of kidney; R31.0 Gross hematuria; N20.1 Calculus of ureter; I26.99 Other pulmonary embolism without acute cor pulmonale; G47.33 Obstructive sleep apnea (adult) (pediatric); E66.01 Morbid (severe) obesity due to excess calories; Z68.42 Body mass index [BMI] 45.0-49.9, adult; Z79.01 Long term (current) use of anticoagulants; Z20.822 Contact with and (suspected) exposure to COVID-19
CPT/HCPCS: 80048; 81001; 85027; 85610; 85730; 87086; 93005; U0003; U0005; 87635; 93010

== ENCOUNTER 2020-07-27 10:17 | Day surgery (SDC) | payer MEDICARE, BC ==
[2020-07-26 12:45] VITALS: BMI 48.4
[2020-07-27] MEDS ORDERED: Levofloxacin 500 mg/D5W 100 ml Premix Bag ONE (10:56)
[2020-07-27] MEDS ORDERED: Fentanyl 100 MCG/2 ML VIAL ONE ×3 (12:16→14:08)
[2020-07-27] MEDS ORDERED: B & O ONE (12:17)
[2020-07-27] MEDS ORDERED: Iothalamate Meglumine 60% 50 ML VIAL FS ONE (12:17)
[2020-07-27] MEDS ORDERED: Lidocaine 1% PF 5 ML VIAL ONE (12:44)
[2020-07-27] MEDS ORDERED: PROPOFOL 200 MG/20 ML VIAL ONE (12:44)
[2020-07-27] MEDS ORDERED: Glycopyrrolate 0.2 MG/ML 5 ML SYRINGE ONE (12:44)
[2020-07-27] MEDS ORDERED: Rocuronium Bromide 10 MG/ML (10ML VIAL) ONE (12:44)
[2020-07-27] MEDS ORDERED: Dexamethasone 20 MG/5 ML VIAL ONE (12:44)
[2020-07-27] MEDS ORDERED: Metoclopramide HCl 10 MG/2 ML VIAL ONE (12:44)
[2020-07-27] MEDS ORDERED: SUGAMMADEX SODIUM 200 MG/2 ML VIAL ONE (13:40)
[2020-08-04 16:14] LABS: CA Oxalate Dihydrate 50 % (.); CA Oxalate Monohydrate 50 % (.); Color Brown (.); Stone Weight 24 mg (.)
== END 2020-07-27 15:58 | disposition home or self-care (01) ==
LOC: SDC 10:17
PROVIDERS: ATTEND Urology
PROC: 0TC48ZZ Extirpation of Matter from Left Kidney Pelvis, Via Natural or Artificial Opening Endoscopic (ICD-10-PCS; principal; 2020-07-27)
PROC: 0TC78ZZ Extirpation of Matter from Left Ureter, Via Natural or Artificial Opening Endoscopic (ICD-10-PCS; 2020-07-27)
PROC: 0T778DZ Dilation of Left Ureter with Intraluminal Device, Via Natural or Artificial Opening Endoscopic (ICD-10-PCS; 2020-07-27)
DX: N20.2 Calculus of kidney with calculus of ureter (principal); E78.5 Hyperlipidemia, unspecified; M19.90 Unspecified osteoarthritis, unspecified site; E03.9 Hypothyroidism, unspecified; I10 Essential (primary) hypertension; G47.33 Obstructive sleep apnea (adult) (pediatric); E66.01 Morbid (severe) obesity due to excess calories; Z68.42 Body mass index [BMI] 45.0-49.9, adult; Z79.01 Long term (current) use of anticoagulants; Z79.899 Other long term (current) drug therapy; Z86.711 Personal history of pulmonary embolism; Z88.0 Allergy status to penicillin; Z88.5 Allergy status to narcotic agent
CPT/HCPCS: 52356; 76000; 82365; 88300; Q9961; J1100; J1956; J2704; J2765; J3010

== ENCOUNTER 2020-09-15 10:31 | Outpatient (CLI) | payer MEDICARE, BC | END 2020-09-15 10:32 | disposition home or self-care (01) | LOC: BICMAMMO 10:31 | PROVIDERS: ATTEND Family Medicine | DX: Z12.31 Encounter for screening mammogram for malignant neoplasm of breast (principal); Z80.3 Family history of malignant neoplasm of breast | CPT/HCPCS: 77063; 77067 ==

== ENCOUNTER 2020-10-17 09:40 | Outpatient (CLI) | payer MEDICARE, BC | END 2020-10-17 09:41 | disposition home or self-care (01) | LOC: BICULT 09:40 | PROVIDERS: ATTEND Otolaryngology Plastic Surgery within the Head & Neck | DX: E04.2 Nontoxic multinodular goiter (principal) | CPT/HCPCS: 76536 ==

== ENCOUNTER 2021-05-04 13:41 | Outpatient (CLI) | payer MEDICARE, BC | END 2021-05-04 13:42 | disposition home or self-care (01) | LOC: BICULT 13:41 | PROVIDERS: ATTEND Otolaryngology Plastic Surgery within the Head & Neck | DX: E04.2 Nontoxic multinodular goiter (principal) | CPT/HCPCS: 76536 ==

== ENCOUNTER 2021-08-16 15:25 | Observation (INO) | payer MEDICARE, BC ==
[2021-08-16 16:10] LABS: #Basophils 0.1 thou/uL (0.0-0.2); #Eosinphils 0.1 thou/uL (0.0-0.7); #Monocytes 0.8 thou/uL (0.11-0.59); #Neutrophils 4.9 thou/uL (1.40-6.50); %Basophils 0.8 % (0.0-1.0); %Eosinophils 1.1 % (0.0-10.0); %Lymphocytes 25.7 % (21.0-51.0); %Monocytes 10.2 % (0.0-10.0); %Neutrophils 62.3 % (42.0-75.0); Hemoglobin 14.7 g/dL (12.0-16.0); Mean Corpuscular HGB CONC 32.2 g/dL (32.0-36.0); Mean Corpuscular Hemoglobin 29.3 pg (27.0-31.0); Mean Corpuscular Volume 90.9 fL (78.0-98.0); Mean Platelet Volume 7.8 fL (7.4-10.4); Platelet Count 194 thou/uL (130-400); Red Blood Cell (RBC) Count 5.01 mill/uL (4.20-5.40); White Blood Cell (WBC) Count 7.8 thou/uL (4.8-10.8)
[2021-08-16 16:31] LABS: ALT (SGPT) 15 U/L (8-55); AST (SGOT) 20 U/L (5-34); Alkaline Phosphatase 72 U/L (40-110); Anion Gap 14 mmol/L (10-20); BUN (Urea Nitrogen) 17 mg/dL (9.8-20.1); Bilirubin, Total 1.1 mg/dL (0.2-1.2); Calc. Creatinine Clearance 0 mL/min (70-130); Calcium 10.1 mg/dL (7.8-10.44); Carbon Dioxide 27 mmol/L (23-31); Chloride 104 mmol/L (98-107); Globulin 2.3 g/dL (2.4-3.5); Glucose 132 mg/dL (83-110); Lipase 17 U/L (8-78); Potassium 3.7 mmol/L (3.5-5.1); Protein, Total 6.3 g/dL (5.8-8.1); Sodium 141 mmol/L (136-145)
[2021-08-16] MEDS ORDERED: Nitroglycerin 2% Ointment 1 INCH/1 GM Packet ONE (19:12)
[2021-08-16] MEDS ORDERED: Bisacodyl 5 MG TAB PO PRN (20:21)
[2021-08-16] MEDS ORDERED: Ondansetron PF 4 MG/2 ML Vial IVP PRN (20:21)
[2021-08-16] MEDS ORDERED: Acetaminophen 325 MG TAB PO PRN (20:21)
[2021-08-16] MEDS ORDERED: Zolpidem Tartrate 5 MG TAB PO PRN (20:21)
[2021-08-16] MEDS ORDERED: Nitroglycerin 0.4 MG TAB (25 Tab Bottle) SL PRN (20:21)
[2021-08-16] MEDS ORDERED: HYDROcodone/Acetaminophen 5/325 mg Tablet PO PRN (20:21)
[2021-08-16] MEDS ORDERED: Aspirin 325 MG TAB PO SCH (20:30)
[2021-08-16 21:35] LABS: Troponin I Less than 0.010 ng/mL (< 0.028)
[2021-08-16] MEDS ORDERED: Aspirin 325 MG TAB ONE (22:58)
[2021-08-16] MEDS ORDERED: Famotidine 20 MG TAB ONE (22:58)
[2021-08-16] MEDS: Famotidine 20 MG TAB PO SCH (23:01)
[2021-08-16 23:55] LABS: Troponin I Less than 0.010 ng/mL (< 0.028)
[2021-08-17] MEDS: Famotidine 20 MG TAB PO SCH ×2 (01:52→09:03)
[2021-08-17 02:55] LABS: SARS-CoV-2 NAA Rapid Test Not Detected (NotDetected)
[2021-08-17 05:45] LABS: #Eosinphils 0.1 thou/uL (0.0-0.7); #Lymphocytes 1.7 thou/uL (1.20-3.40); #Monocytes 0.9 thou/uL (0.11-0.59); %Basophils 0.4 % (0.0-1.0); %Eosinophils 1.1 % (0.0-10.0); %Lymphocytes 21.6 % (21.0-51.0); %Monocytes 12.2 % (0.0-10.0); %Neutrophils 64.7 % (42.0-75.0); Hemoglobin 12.8 g/dL (12.0-16.0); Mean Corpuscular Hemoglobin 28.9 pg (27.0-31.0); Mean Corpuscular Volume 90.3 fL (78.0-98.0); Mean Platelet Volume 7.7 fL (7.4-10.4); Platelet Count 174 thou/uL (130-400); Red Blood Cell (RBC) Count 4.44 mill/uL (4.20-5.40); White Blood Cell (WBC) Count 7.7 thou/uL (4.8-10.8)
[2021-08-17 06:04] LABS: ALT (SGPT) 12 U/L (8-55); AST (SGOT) 15 U/L (5-34); Albumin 3.4 g/dL (3.4-4.8); Alkaline Phosphatase 61 U/L (40-110); Anion Gap 12 mmol/L (10-20); BUN (Urea Nitrogen) 15 mg/dL (9.8-20.1); Bilirubin, Total 1.1 mg/dL (0.2-1.2); Calc. Creatinine Clearance 147 mL/min (70-130); Calcium 9.5 mg/dL (7.8-10.44); Carbon Dioxide 27 mmol/L (23-31); Cardiac Risk 2.7 (Less than 4.5); Chloride 104 mmol/L (98-107); Cholesterol 138 mg/dl (< 200 Desired); Globulin 2.3 g/dL (2.4-3.5); Glucose 110 mg/dL (83-110); HDL Cholesterol 52 mg/dL (>60 Neg Risk); LDL Cholesterol, Calculated 72 mg/dL; Potassium 3.1 mmol/L (3.5-5.1); Protein, Total 5.7 g/dL (5.8-8.1); Sodium 140 mmol/L (136-145); Triglycerides 70 mg/dL (Less than 150)
[2021-08-17] MEDS ORDERED: Potassium Chloride 40 MEQ in Premix Bag 1 BAG IVPB SCH (08:00)
[2021-08-17 08:42] LABS: Magnesium 1.9 mg/dL (1.6-2.6)
[2021-08-17] MEDS ORDERED: Clopidogrel Bisulfate 75 MG TAB ONE (08:58)
[2021-08-17] MEDS ORDERED: Famotidine 20 MG TAB ONE (08:58)
[2021-08-17] MEDS ORDERED: Apixaban 5 MG TAB PO SCH (09:00)
[2021-08-17] MEDS ORDERED: Magnesium 2 GM/50 ML(in water) 2 GM in Premix Bag 1 BAG IVPB SCH (09:00)
[2021-08-17] MEDS ORDERED: Clopidogrel Bisulfate 75 MG TAB PO SCH (09:00)
[2021-08-17] MEDS ORDERED: Aspirin Chewable 81 MG TAB PO SCH (09:00)
[2021-08-17] MEDS ORDERED: Bisacodyl 5 MG TAB PO SCH (09:00)
[2021-08-17] MEDS ORDERED: Magnesium 2 GM/50 ML BAG (IN WATER) ONE (10:53)
[2021-08-17 12:27] VITALS: TEMP 97
[2021-08-17 12:30] VITALS: BMI 48.2
[2021-08-17] MEDS ORDERED: Potassium Chloride 20 MEQ in Premix Bag 1 BAG IVPB SCH (14:00)
[2021-08-17 14:38] LABS: Anion Gap 13 mmol/L (10-20); BUN (Urea Nitrogen) 12 mg/dL (9.8-20.1); Calc. Creatinine Clearance 138 mL/min (70-130); Carbon Dioxide 27 mmol/L (23-31); Chloride 104 mmol/L (98-107); Glucose 119 mg/dL (83-110); Potassium 3.3 mmol/L (3.5-5.1); Sodium 141 mmol/L (136-145)
[2021-08-17] MEDS ORDERED: Potassium Chloride 20 MEQ TAB PO SCH (15:00)
[2021-08-17 16:41] VITALS: BP 141/81
[2021-08-17] MEDS ORDERED: Atorvastatin Calcium 10 MG TAB PO SCH (21:00)
== END 2021-08-17 17:27 | disposition home or self-care (01) ==
LOC: ERS 15:25 → ERHOLD 20:21 → 2SW 08-17 12:14
PROVIDERS: ADMIT Internal Medicine; ATTEND Internal Medicine
DX: R07.89 Other chest pain (principal); I10 Essential (primary) hypertension; G47.33 Obstructive sleep apnea (adult) (pediatric); E03.9 Hypothyroidism, unspecified; E78.5 Hyperlipidemia, unspecified; I25.10 Atherosclerotic heart disease of native coronary artery without angina pectoris; I08.1 Rheumatic disorders of both mitral and tricuspid valves; E66.9 Obesity, unspecified; Z68.42 Body mass index [BMI] 45.0-49.9, adult; Z66 Do not resuscitate; Z86.711 Personal history of pulmonary embolism; Z79.01 Long term (current) use of anticoagulants; Z79.890 Hormone replacement therapy; Z79.899 Other long term (current) drug therapy; Z88.0 Allergy status to penicillin; Z88.5 Allergy status to narcotic agent; Z20.822 Contact with and (suspected) exposure to COVID-19
CPT/HCPCS: 71045; 80048; 80053; 80061; 83690; 83735; 83880; 84484; 85025; 85379; 93005; 93306; 94760 ×2; 97116; 97139 ×4; 99285; U0002; 36415; 84443; 96365; 96366; 96375; G0378; J3475; J3480

== ENCOUNTER 2021-08-22 19:48 | Emergency (ER) | payer MEDICARE, BC ==
[2021-08-22 20:28] LABS: #Lymphocytes 1.6 thou/uL (1.20-3.40); #Monocytes 0.7 thou/uL (0.11-0.59); #Neutrophils 6.2 thou/uL (1.40-6.50); %Basophils 0.3 % (0.0-1.0); %Eosinophils 0.4 % (0.0-10.0); %Monocytes 8.4 % (0.0-10.0); %Neutrophils 71.8 % (42.0-75.0); Mean Corpuscular HGB CONC 33.4 g/dL (32.0-36.0); Mean Corpuscular Hemoglobin 29.6 pg (27.0-31.0); Mean Corpuscular Volume 88.7 fL (78.0-98.0); Mean Platelet Volume 7.1 fL (7.4-10.4); Platelet Count 196 thou/uL (130-400); RBC Distribution Width 12.1 % (11.5-14.5); Red Blood Cell (RBC) Count 4.72 mill/uL (4.20-5.40); White Blood Cell (WBC) Count 8.6 thou/uL (4.8-10.8)
[2021-08-22 20:49] LABS: ALT (SGPT) 16 U/L (8-55); AST (SGOT) 15 U/L (5-34); Albumin 3.9 g/dL (3.4-4.8); Alkaline Phosphatase 67 U/L (40-110); Anion Gap 13 mmol/L (10-20); BUN (Urea Nitrogen) 14 mg/dL (9.8-20.1); Bilirubin, Total 0.7 mg/dL (0.2-1.2); Calc. Creatinine Clearance 0 mL/min (70-130); Calcium 9.7 mg/dL (7.8-10.44); Carbon Dioxide 28 mmol/L (23-31); Chloride 104 mmol/L (98-107); Globulin 2.3 g/dL (2.4-3.5); Glucose 117 mg/dL (83-110); Potassium 3.6 mmol/L (3.5-5.1); Protein, Total 6.2 g/dL (5.8-8.1); Sodium 141 mmol/L (136-145)
== END 2021-08-22 21:12 | disposition home or self-care (01) ==
LOC: ERS 19:48
DX: I10 Essential (primary) hypertension (principal); E03.9 Hypothyroidism, unspecified; G47.30 Sleep apnea, unspecified; E78.5 Hyperlipidemia, unspecified; Z79.899 Other long term (current) drug therapy; Z79.01 Long term (current) use of anticoagulants
CPT/HCPCS: 36415; 71045; 80053; 83880; 84484; 85025; 93005

== ENCOUNTER 2021-09-13 09:22 | Outpatient (CLI) | payer MEDICARE, BC ==
[~2021-09-13 09:22] MED LIST changes: -ISOVUE-370 76%-LOCM 1 ML ONE; +Regadenoson 0.4 MG/5 ML SYRINGE ONE
== END 2021-09-13 09:23 | disposition home or self-care (01) ==
LOC: NM 09:22
PROVIDERS: ATTEND Internal Medicine Cardiovascular Disease
DX: I25.10 Atherosclerotic heart disease of native coronary artery without angina pectoris (principal)
CPT/HCPCS: 78452; 93017; A9500; J2785

== ENCOUNTER 2021-09-18 08:57 | Outpatient (CLI) | payer MEDICARE, BC | END 2021-09-18 08:58 | disposition home or self-care (01) | LOC: BICMAMMO 08:57 | PROVIDERS: ATTEND Family Medicine | DX: Z12.31 Encounter for screening mammogram for malignant neoplasm of breast (principal); Z80.3 Family history of malignant neoplasm of breast | CPT/HCPCS: 77063; 77067 ==

== ENCOUNTER 2021-10-24 22:18 | Emergency (ER) | payer MEDICARE, BC ==
[2021-10-24 22:56] LABS: #Basophils 0.1 thou/uL (0.0-0.2); #Eosinphils 0.1 thou/uL (0.0-0.7); #Lymphocytes 2.2 thou/uL (1.20-3.40); #Monocytes 0.6 thou/uL (0.11-0.59); #Neutrophils 2.4 thou/uL (1.40-6.50); %Basophils 1.3 % (0.0-1.0); %Eosinophils 1.3 % (0.0-10.0); %Lymphocytes 41.1 % (21.0-51.0); %Monocytes 11.3 % (0.0-10.0); Hemoglobin 14.1 g/dL (12.0-16.0); Mean Corpuscular HGB CONC 32.6 g/dL (32.0-36.0); Mean Corpuscular Hemoglobin 29.3 pg (27.0-31.0); Mean Corpuscular Volume 89.9 fL (78.0-98.0); Mean Platelet Volume 7.5 fL (7.4-10.4); Platelet Count 182 thou/uL (130-400); RBC Distribution Width 11.8 % (11.5-14.5); White Blood Cell (WBC) Count 5.4 thou/uL (4.8-10.8)
[2021-10-24 23:17] LABS: CRP (Inflammatory) Less than 0.50 mg/dL (= or < 0.5); Magnesium 1.6 mg/dL (1.6-2.6)
[2021-10-24 23:18] LABS: ALT (SGPT) 23 U/L (8-55); AST (SGOT) 29 U/L (5-34); Albumin 3.8 g/dL (3.4-4.8); Alkaline Phosphatase 79 U/L (40-110); Anion Gap 18 mmol/L (10-20); BUN (Urea Nitrogen) 13 mg/dL (9.8-20.1); Bilirubin, Total 0.5 mg/dL (0.2-1.2); Calc. Creatinine Clearance 0 mL/min (70-130); Calcium 10.1 mg/dL (7.8-10.44); Carbon Dioxide 22 mmol/L (23-31); Chloride 104 mmol/L (98-107); Estimated GFR 82; Globulin 2.6 g/dL (2.4-3.5); Glucose 149 mg/dL (83-110); Potassium 3.7 mmol/L (3.5-5.1); Protein, Total 6.4 g/dL (5.8-8.1); Sodium 140 mmol/L (136-145)
[2021-10-24] MEDS ORDERED: Magnesium Oxide 400 MG TAB PO SCH (23:45)
== END 2021-10-25 00:10 | disposition short-term general hospital (02) ==
LOC: ERS 22:18
DX: U07.1 COVID-19 (principal); E03.9 Hypothyroidism, unspecified; G47.30 Sleep apnea, unspecified; E78.5 Hyperlipidemia, unspecified; I10 Essential (primary) hypertension; Z79.899 Other long term (current) drug therapy; Z79.01 Long term (current) use of anticoagulants
CPT/HCPCS: 36415; 71045; 80053; 83605; 83735; 84484; 85025; 85652; 86140; 96360

== ENCOUNTER 2022-01-12 15:45 | Emergency (ER) | payer MEDICARE ==
[2022-01-12] MEDS ORDERED: Nitroglycerin 2% Ointment 1 INCH/1 GM Packet ONE (16:12)
[2022-01-12 16:18] LABS: #Eosinphils 0.1 thou/uL (0.0-0.7); #Lymphocytes 1.5 thou/uL (1.20-3.40); #Monocytes 0.6 thou/uL (0.11-0.59); #Neutrophils 6.2 thou/uL (1.40-6.50); %Basophils 0.5 % (0.0-1.0); %Eosinophils 0.7 % (0.0-10.0); %Lymphocytes 17.6 % (21.0-51.0); %Monocytes 7.1 % (0.0-10.0); %Neutrophils 74.1 % (42.0-75.0); Hemoglobin 14.2 g/dL (12.0-16.0); Mean Corpuscular HGB CONC 31.5 g/dL (32.0-36.0); Mean Corpuscular Hemoglobin 28.4 pg (27.0-31.0); Mean Corpuscular Volume 90.2 fl (78.0-98.0); Mean Platelet Volume 7.4 fL (7.4-10.4); Platelet Count 193 thou/uL (130-400); Red Blood Cell (RBC) Count 4.99 mill/uL (4.20-5.40); White Blood Cell (WBC) Count 8.3 thou/uL (4.8-10.8)
[2022-01-12 16:37] LABS: ALT (SGPT) 14 U/L (8-55); AST (SGOT) 15 U/L (5-34); Albumin 4.2 g/dL (3.4-4.8); Alkaline Phosphatase 75 U/L (40-110); Anion Gap 13 mmol/L (10-20); BUN (Urea Nitrogen) 15 mg/dL (9.8-20.1); Bilirubin, Total 0.7 mg/dL (0.2-1.2); Calc. Creatinine Clearance 0 mL/min (70-130); Calcium 10.4 mg/dL (7.8-10.44); Carbon Dioxide 28 mmol/L (23-31); Chloride 104 mmol/L (98-107); Estimated GFR 80; Globulin 2.6 g/dL (2.4-3.5); Glucose 118 mg/dL (83-110); Lipase 11 U/L (8-78); Potassium 3.6 mmol/L (3.5-5.1); Protein, Total 6.8 g/dL (5.8-8.1); Sodium 141 mmol/L (136-145)
[2022-01-12 19:54] LABS: Troponin I Less than 0.010 ng/mL (< 0.028)
== END 2022-01-12 20:12 | disposition home or self-care (01) ==
LOC: ERS 15:45
DX: R07.89 Other chest pain (principal); E03.9 Hypothyroidism, unspecified; E78.5 Hyperlipidemia, unspecified; I10 Essential (primary) hypertension
CPT/HCPCS: 36415; 71045; 80053; 83690; 83880; 84484; 85025; 93005; 94760

== ENCOUNTER 2022-05-11 07:36 | Emergency (ER) | payer MEDICARE, BC ==
[2022-05-11 08:13] LABS: #Basophils 0.1 thou/uL (0.0-0.2); #Eosinphils 0.1 thou/uL (0.0-0.7); #Lymphocytes 1.2 thou/uL (1.20-3.40); #Monocytes 0.5 thou/uL (0.11-0.59); #Neutrophils 3.5 thou/uL (1.40-6.50); %Basophils 1.1 % (0.0-1.0); %Eosinophils 1.2 % (0.0-10.0); %Lymphocytes 21.7 % (21.0-51.0); Mean Corpuscular HGB CONC 32.8 g/dL (32.0-36.0); Mean Corpuscular Hemoglobin 29.4 pg (27.0-31.0); Mean Corpuscular Volume 89.5 fl (78.0-98.0); Mean Platelet Volume 7.4 fL (7.4-10.4); Platelet Count 199 10x3/uL (130-400); RBC Distribution Width 12.1 % (11.5-14.5); Red Blood Cell (RBC) Count 4.78 mill/uL (4.20-5.40); White Blood Cell (WBC) Count 5.3 10x3/uL (4.8-10.8)
[2022-05-11 08:34] LABS: ALT (SGPT) 12 U/L (8-55); AST (SGOT) 16 U/L (5-34); Albumin 3.9 g/dL (3.4-4.8); Alkaline Phosphatase 69 U/L (40-110); Anion Gap 10 mmol/L (10-20); BUN (Urea Nitrogen) 11 mg/dL (9.8-20.1); Bilirubin, Total 0.8 mg/dL (0.2-1.2); Calc. Creatinine Clearance 0 mL/min (70-130); Calcium 10.2 mg/dL (7.8-10.44); Carbon Dioxide 28 mmol/L (23-31); Chloride 106 mmol/L (98-107); Estimated GFR 82; Globulin 2.6 g/dL (2.4-3.5); Glucose 117 mg/dL (83-110); Potassium 3.3 mmol/L (3.5-5.1); Protein, Total 6.5 g/dL (5.8-8.1); Sodium 141 mmol/L (136-145)
[2022-05-11 12:07] LABS: Troponin I Less than 0.010 ng/mL (< 0.028)
== END 2022-05-11 13:30 | disposition home or self-care (01) ==
LOC: ERS 07:36
DX: R07.89 Other chest pain (principal); E03.9 Hypothyroidism, unspecified; E78.5 Hyperlipidemia, unspecified; I10 Essential (primary) hypertension; Z79.899 Other long term (current) drug therapy; Z79.01 Long term (current) use of anticoagulants
CPT/HCPCS: 36415; 71045; 80053; 83880; 84484; 85025; 85379; 93005

== ENCOUNTER 2022-06-14 13:47 | Outpatient (CLI) | payer MEDICARE, BC | END 2022-06-14 13:48 | disposition home or self-care (01) | LOC: BICULT 13:47 | PROVIDERS: ATTEND Otolaryngology Plastic Surgery within the Head & Neck | DX: E04.1 Nontoxic single thyroid nodule (principal) | CPT/HCPCS: 76536 ==

== ENCOUNTER 2022-10-15 12:58 | Outpatient (CLI) | payer MEDICARE, BC | END 2022-10-15 12:59 | disposition home or self-care (01) | LOC: BICMAMMO 12:58 | PROVIDERS: ATTEND Family Medicine | DX: Z12.31 Encounter for screening mammogram for malignant neoplasm of breast (principal); Z80.3 Family history of malignant neoplasm of breast | CPT/HCPCS: 77063; 77067 ==

== ENCOUNTER 2022-10-21 14:59 | Outpatient (CLI) | payer MEDICARE, BC | END 2022-10-21 15:00 | disposition home or self-care (01) | LOC: BICMAMMO 14:59 | PROVIDERS: ATTEND Family Medicine | DX: Z13.820 Encounter for screening for osteoporosis (principal); M85.851 Other specified disorders of bone density and structure, right thigh; Z78.0 Asymptomatic menopausal state | CPT/HCPCS: 77080 ==

== ENCOUNTER 2022-11-14 19:32 | Emergency (ER) | payer MEDICARE, BC ==
[2022-11-14 20:02] LABS: #Monocytes 0.1 thou/uL (0.11-0.59); #Neutrophils 4.7 thou/uL (1.40-6.50); %Lymphocytes 11.6 % (21.0-51.0); %Monocytes 0.9 % (0.0-10.0); %Neutrophils 86.6 % (42.0-75.0); Hematocrit 43.8 % (36.0-47.0); Hemoglobin 14.4 g/dL (12.0-16.0); Mean Corpuscular HGB CONC 32.9 g/dL (32.0-36.0); Mean Corpuscular Hemoglobin 28.6 pg (27.0-31.0); Mean Corpuscular Volume 86.9 fl (78.0-98.0); Mean Platelet Volume 9.7 fL (7.4-10.4); Platelet Count 230 10x3/uL (130-400); RBC Distribution Width 12.7 % (11.5-14.5); Red Blood Cell (RBC) Count 5.04 mill/uL (4.20-5.40); White Blood Cell (WBC) Count 5.4 10x3/uL (4.8-10.8)
[2022-11-14 20:28] LABS: Troponin I Less than 0.010 ng/mL (< 0.028)
[2022-11-14 20:50] LABS: ALT (SGPT) 12 U/L (8-55); AST (SGOT) 24 U/L (5-34); Albumin 4.1 g/dL (3.4-4.8); Alkaline Phosphatase 92 U/L (40-110); Anion Gap 19 mmol/L (10-20); BUN (Urea Nitrogen) 16 mg/dL (9.8-20.1); Bilirubin, Total 0.4 mg/dL (0.2-1.2); Calc. Creatinine Clearance 0 mL/min (70-130); Calcium 10.4 mg/dL (7.8-10.44); Carbon Dioxide 20 mmol/L (23-31); Chloride 105 mmol/L (98-107); Estimated GFR 71; Globulin 3.2 g/dL (2.4-3.5); Glucose 201 mg/dL (83-110); Potassium 3.7 mmol/L (3.5-5.1); Protein, Total 7.3 g/dL (5.8-8.1); Sodium 140 mmol/L (136-145)
[2022-11-14] MEDS ORDERED: Ondansetron PF 4 MG/2 ML Vial ONE (21:58)
== END 2022-11-14 23:04 | disposition home or self-care (01) ==
LOC: ERS 19:32
DX: R07.9 Chest pain, unspecified (principal); E03.9 Hypothyroidism, unspecified; E78.5 Hyperlipidemia, unspecified; I10 Essential (primary) hypertension
CPT/HCPCS: 71045; 80053; 83880; 84484; 85025; 93005; 96374; J2405

== ENCOUNTER 2023-04-18 09:09 | Outpatient (CLI) | payer MEDICARE, BC ==
[2023-04-18] MEDS ORDERED: Regadenoson 0.4 MG/5 ML SYRINGE ONE (10:02)
== END 2023-04-18 09:10 | disposition home or self-care (01) ==
LOC: NM 09:09
PROVIDERS: ATTEND Internal Medicine Cardiovascular Disease
DX: R07.9 Chest pain, unspecified (principal)
CPT/HCPCS: 78452; 93017; A9502; J2785

== ENCOUNTER 2023-05-13 14:23 | Outpatient (CLI) | payer MEDICARE, BC | END 2023-05-13 14:24 | disposition home or self-care (01) | LOC: BICCT 14:23 | PROVIDERS: ATTEND Urology | DX: N20.0 Calculus of kidney (principal); K80.20 Calculus of gallbladder without cholecystitis without obstruction; K86.9 Disease of pancreas, unspecified; Z79.01 Long term (current) use of anticoagulants | CPT/HCPCS: 74178; 82565 ==

== ENCOUNTER 2023-12-10 14:31 | Outpatient (CLI) | payer MEDICARE, BC | END 2023-12-10 14:32 | disposition home or self-care (01) | LOC: BICMAMMO 14:31 | PROVIDERS: ATTEND Family Medicine | DX: Z12.31 Encounter for screening mammogram for malignant neoplasm of breast (principal); M81.0 Age-related osteoporosis without current pathological fracture; M85.852 Other specified disorders of bone density and structure, left thigh; Z80.3 Family history of malignant neoplasm of breast | CPT/HCPCS: 77067; 77080 ==

== ENCOUNTER 2024-01-19 12:04 | Outpatient (CLI) | payer MEDICARE, BC | END 2024-01-19 12:05 | disposition home or self-care (01) | LOC: BICCT 12:04 | PROVIDERS: ATTEND Urology | DX: N20.2 Calculus of kidney with calculus of ureter (principal); R31.9 Hematuria, unspecified; K80.20 Calculus of gallbladder without cholecystitis without obstruction | CPT/HCPCS: 74176 ==

== ENCOUNTER 2024-02-16 12:56 | Outpatient (CLI) | payer MEDICARE, BC ==
[2024-02-16 15:19] LABS: #Basophils 0.04 10x3/uL (0.0-0.2); %Basophils 0.6 % (0.0-1.0); %Eosinophils 0.9 % (0.0-10.0); %Monocytes 9.8 % (0.0-10.0); %Neutrophils 60.1 % (42.0-75.0); Hematocrit 42.5 % (36.0-47.0); Hemoglobin 13.4 g/dL (12.0-16.0); Mean Corpuscular HGB CONC 31.5 g/dL (32.0-36.0); Mean Corpuscular Hemoglobin 28.6 pg (27.0-31.0); Mean Corpuscular Volume 90.8 fL (78.0-98.0); Mean Platelet Volume 9.9 fL (7.4-10.4); Platelet Count 222 10x3/uL (130-400); RBC Distribution Width 12.2 % (11.5-14.5); Red Blood Cell (RBC) Count 4.68 mill/uL (4.20-5.40)
[2024-02-16 15:34] LABS: INR-International Normal Ratio 1.2; PTT 30.2 sec (22.9-36.1)
[2024-02-16 15:37] LABS: Anion Gap 12 mmol/L (10-20); BUN (Urea Nitrogen) 21 mg/dL (9.8-20.1); Calc. Creatinine Clearance 0 mL/min (70-130); Calcium 10.5 mg/dL (7.8-10.44); Carbon Dioxide 31 mmol/L (23-31); Chloride 102 mmol/L (98-107); Estimated GFR 63; Glucose 109 mg/dL (83-110); Potassium 3.1 mmol/L (3.5-5.1); Sodium 142 mmol/L (136-145)
[2024-02-16 15:49] LABS: Bacteria/HPF None Seen HPF (None Seen); Bilirubin Negative (Negative); Blood, Urine Negative (Negative); Clarity Clear (Clear); Glucose, Urine (Dipstick) Normal (Negative); Ketone, Urine Negative (Negative); Leukocyte Negative Leu/uL (Negative); Nitrite Negative (Negative); Protein, Urine (Dipstick) Negative (Neg-Trace); RBC/HPF 0-3 HPF (0-3); Specific Gravity, Urine 1.003 (1.002-1.036); Squamous Epithelial 0-3 HPF (0-3); Urobilinogen Normal mg/dL (Less than 2); WBC/HPF 0-3 HPF (0-3)
== END 2024-02-16 12:57 | disposition home or self-care (01) ==
LOC: LABBT 12:56
PROVIDERS: ATTEND Urology
DX: Z01.818 Encounter for other preprocedural examination (principal); Z51.81 Encounter for therapeutic drug level monitoring; N20.0 Calculus of kidney; R31.9 Hematuria, unspecified; K86.89 Other specified diseases of pancreas; R31.0 Gross hematuria; D30.01 Benign neoplasm of right kidney; I26.99 Other pulmonary embolism without acute cor pulmonale; G47.33 Obstructive sleep apnea (adult) (pediatric); Z79.01 Long term (current) use of anticoagulants
CPT/HCPCS: 80048; 81001; 85025; 85610; 85730; 87086; 93005; 93010

== ENCOUNTER 2024-02-26 05:55 | Day surgery (SDC) | payer MEDICARE, BC ==
[2024-02-16 13:20] VITALS: BMI 43.5
[2024-02-26] MEDS ORDERED: cefTRIAXone (ROCEPHIN) 1 GM VIAL ONE (06:43)
[2024-02-26] MEDS ORDERED: Sodium Chloride 0.9% 100 ML ONE (06:43)
[2024-02-26] MEDS ORDERED: Lidocaine 1% PF 5 ML VIAL ONE (07:27)
[2024-02-26] MEDS ORDERED: PROPOFOL 20 ML ONE (07:27)
[2024-02-26] MEDS ORDERED: Rocuronium Bromide 10 MG/ML (10ML VIAL) ONE (07:27)
[2024-02-26] MEDS ORDERED: Dexamethasone 20 MG/5 ML VIAL ONE (07:27)
[2024-02-26] MEDS ORDERED: Glycopyrrolate 0.2 MG/ML 5 ML SYRINGE ONE ×2 (07:28→08:18)
[2024-02-26] MEDS ORDERED: PHENYLEPHRINE-NS 100 MCG/ML 10 ML SYRINGE ONE (07:28)
[2024-02-26] MEDS ORDERED: Midazolam HCl 2 mg/2 ml Vial ONE (07:28)
[2024-02-26] MEDS ORDERED: fentaNYL 50 mcg/mL 1 mL Vial ONE (07:28)
[2024-02-26] MEDS ORDERED: SUGAMMADEX SODIUM 200 MG/2 ML VIAL ONE (08:42)
[2024-02-26] MEDS ORDERED: Ondansetron PF 4 MG/2 ML Vial ONE (08:42)
[2024-02-26] MEDS ORDERED: Phenazopyridine HCl 100 MG TAB ONE (09:02)
[2024-02-26] MEDS ORDERED: Oxybutynin 5 MG TAB ONE (09:02)
== END 2024-02-26 10:59 | disposition home or self-care (01) ==
LOC: SDC 05:55
PROVIDERS: ATTEND Urology
PROC: 0TC78ZZ Extirpation of Matter from Left Ureter, Via Natural or Artificial Opening Endoscopic (ICD-10-PCS; principal; 2024-02-26)
PROC: 0T778DZ Dilation of Left Ureter with Intraluminal Device, Via Natural or Artificial Opening Endoscopic (ICD-10-PCS; 2024-02-26)
DX: N20.1 Calculus of ureter (principal); I26.99 Other pulmonary embolism without acute cor pulmonale; I10 Essential (primary) hypertension; E78.5 Hyperlipidemia, unspecified; Z88.5 Allergy status to narcotic agent; Z88.0 Allergy status to penicillin; Z79.01 Long term (current) use of anticoagulants; Z79.899 Other long term (current) drug therapy
CPT/HCPCS: 52356; 82365; J0696; J1100; J2250; J2405; J2704; J3010; 88300; C1713; C1747; C1769; C2617

== ENCOUNTER 2024-07-08 10:45 | Outpatient (CLI) | payer MEDICARE, BC | END 2024-07-08 10:46 | disposition home or self-care (01) | LOC: BICULT 10:45 | PROVIDERS: ATTEND Otolaryngology Plastic Surgery within the Head & Neck | DX: E04.2 Nontoxic multinodular goiter (principal) | CPT/HCPCS: 76536 ==

== ENCOUNTER 2024-12-13 09:40 | Outpatient (CLI) | payer MEDICARE, BC | END 2024-12-13 09:41 | disposition home or self-care (01) | LOC: BICMAMMO 09:40 | PROVIDERS: ATTEND Family Medicine | DX: Z12.31 Encounter for screening mammogram for malignant neoplasm of breast (principal); Z80.3 Family history of malignant neoplasm of breast | CPT/HCPCS: 77063; 77067 ==